=== PATIENT | female | born 1970 | race Hispanic/Latino ===

== ENCOUNTER 2017-11-03 13:04 | Emergency (ER) | payer BC ==
[2017-11-03 13:05] VITALS: BMI 24.0
[2017-11-03 13:39] VITALS: BP 104/62; PULSE 65; RESP 16; TEMP 98.7; O2SAT 98
--- NOTE | 2017-11-03 15:14 | ED PDOC ---
HPI: General Adult Time Seen by Provider: 11/03/17 14:40 Chief Complaint (Nursing): Back Pain Chief Complaint (Provider): Neck Pain/Back Pain History Per: Patient History/Exam Limitations: no limitations Onset/Duration Of Symptoms: Days (x2) Current Symptoms Are (Timing): Still Present Additional Complaint(s): Marisol Wetzel is a 47 year old female that presents to the ED with a chief complaint of neck pain and upper back pain s/p fall 3 days ago. Patient states that she has a history of osteopenia and she wants to make sure she doesn't have a fracture. Patient also twisted her right knee at time of fall but is able to bear weight and walk. She has not taken anything for pain relief. No chest pain, shortness of breath or dyspnea on exertion. Past Medical History Reviewed: Historical Data, Nursing Documentation, Vital Signs Vital Signs: Last Vital Signs Temp 98.7 F 11/03/17 13:33 Pulse 65 11/03/17 13:33 Resp 16 11/03/17 13:33 BP 104/62 11/03/17 13:33 Pulse Ox 98 11/03/17 15:46 - Medical History PMH: Gastritis Other PMH: osteopenia - Family History Family History: States: No Known Family Hx - Living Arrangements Living Arrangements: With Family - Social History Current smoker - smoking cessation education provided: No Alcohol: None Drugs: Denies - Allergies Allergies/Adverse Reactions: Allergies Allergy/AdvReac Type Severity Reaction Status Date / Time Penicillins Allergy RASH Verified 11/03/17 13:33 steroids Allergy DIZZINESS Uncoded 11/03/17 13:33 Review of Systems ROS Statement: Except As Marked, All Systems Reviewed And Found Negative Musculoskeletal: Positive for: Neck Pain, Back Pain (upper back pain), Leg Pain (right knee pain) Physical Exam - Reviewed Nursing Documentation Reviewed: Yes Vital Signs Reviewed: Yes - Physical Exam Appears: Positive for: Non-toxic, No Acute Distress Head Exam: Positive for: ATRAUMATIC, NORMOCEPHALIC Skin: Positive for: Normal Color, Warm Eye Exam: Positive for: Normal appearance, EOMI, PERRL Neck: Positive for: Supple, Pain On Movement Of Neck. Negative for: Normal ( Tenderness to palpation along midline of C-Spine with no step off and full rom) Cardiovascular/Chest: Positive for: Regular Rate, Rhythm Respiratory: Positive for: Normal Breath Sounds. Negative for: Wheezing, Respiratory Distress Back: Positive for: Normal Inspection, Vertebral Tenderness (Tenderness to palpation along midline of thoracic spine). Negative for: L CVA Tenderness, R CVA Tenderness Extremity: Positive for: Normal ROM (full ROM right knee), Swelling (mild swelling right knee medially) Neurologic/Psych: Positive for: Alert, Oriented - ECG O2 Sat by Pulse Oximetry: 98 (RA) Pulse Ox Interpretation: Normal - Other Rad C spine x-ray X-Ray: Interpreted by Me, Viewed By Me X-Ray Interpretation: no fx, no dis T spine x-ray X-Ray: Interpreted by Me, Viewed By Me X-Ray Interpretation: ? compression fracture Medical Decision Making Medical Decision Making: Impression: 47 year old female with neck and upper back pain Plan: * X-Ray C-Spine * X-Ray T-Spine Patient declined both X-Ray for right knee and pain medication. CT of cervical and thoracic spine ordered to assess for occult fracture given history of osteopenia. Patient agrees to CTs. CT cervical spine and thoracic spine demonstrated no acute fractures. Copies of report provided to patient. Patient was instructed to take NSAIDs for pain as needed and ice affected area. Orthopedic referral given. Scribe Attestation: Documented by Corazon Garcia, acting as a scribe for Alisia Angeles PA-C. Provider Scribe Attestation: All medical record entries made by the Scribe were at my direction and personally dictated by me. I have reviewed the chart and agree that the record accurately reflects my personal performance of the history, physical exam, medical decision making, and the department course for this patient. I have also personally directed, reviewed, and agree with the discharge instructions and disposition. Disposition - Clinical Impression Clinical Impression: Neck sprain, Strain of thoracic region - Patient ED Disposition Is Patient to be Admitted: No Counseled Patient/Family Regarding: Studies Performed, Diagnosis, Need For Followup - Disposition Referrals: Napoleon Barrios MD [Medical Doctor] - Disposition: Routine/Home Disposition Time: 17:57 Condition: STABLE Additional Instructions: Ice affected area and rest as much as possible. Take [id number] pain relievers as needed. Follow-up with primary doctor or with orthopedist for any persistent symptoms. Instructions: Cervical Muscle Strain, Upper Back Pain Forms: [employer] (Scottish)
--- NOTE | 2017-11-03 16:06 | RAD ---
PROCEDURE: Cervical Spine Radiographs. HISTORY: Pain. COMPARISON: None. FINDINGS: BONES: Alignment maintained. No fracture. Dens Intact. DISC SPACES: Normal. SOFT TISSUES: Normal. No prevertebral soft tissue swelling. OTHER FINDINGS: None. IMPRESSION: Normal cervical spine radiographs
--- NOTE | 2017-11-03 16:07 | RAD ---
HISTORY: trauma COMPARISON: No prior. FINDINGS: BONES: Alignment maintained. No fracture. DISC SPACES: Normal. SOFT TISSUES: Normal. OTHER FINDINGS: None. IMPRESSION: Normal radiographs of the thoracic spine.
--- NOTE | 2017-11-03 17:17 | CT ---
PROCEDURE: CT Cervical Spine without contrast HISTORY: <rule out fx> COMPARISON: None available. TECHNIQUE: Axial computed tomography images were obtained of the cervical spine without the use of intravenous contrast. Coronal and sagittal reformatted images were created and reviewed. Radiation dose: Total exam DLP = mGy-cm. This CT exam was performed using one or more of the following dose reduction techniques: Automated exposure control, adjustment of the mA and/or kV according to patient size, and/or use of iterative reconstruction technique. FINDINGS: VERTEBRAE: No fracture. Normal alignment. No destructive bony lesion. DISCS/SPINAL CANAL/NEURAL FORAMINA: No significant central canal or neural foraminal stenosis. Discs heights are grossly preserved. PARASPINAL SOFT TISSUES: Unremarkable. OTHER FINDINGS: None. IMPRESSION: Unremarkable CT of the cervical spine.
--- NOTE | 2017-11-03 17:53 | CT ---
PROCEDURE: CT Thoracic Spine without contrast HISTORY: ? fracture of x-ray COMPARISON: None. TECHNIQUE: Axial computed tomography images were obtained of the thoracic spine without intravenous contrast. Coronal and sagittal reformatted images were created and reviewed. Radiation dose: Total exam DLP = mGy-cm. This CT exam was performed using one or more of the following dose reduction techniques: Automated exposure control, adjustment of the mA and/or kV according to patient size, and/or use of iterative reconstruction technique. FINDINGS: VERTEBRAE: Unremarkable. No fracture. Normal alignment. DISCS/SPINAL CANAL/NEURAL FORAMINA: Within the limits of the CT technique, no disc herniation seen. No central canal or neural foraminal stenosis.. PARASPINAL SOFT TISSUES: Unremarkable. OTHER FINDINGS: Unremarkable. IMPRESSION: Unremarkable CT of the thoracic spine.
== END 2017-11-03 18:09 | disposition home or self-care (01) ==
LOC: H.ER 13:04
DX: S13.9XXA Sprain of joints and ligaments of unspecified parts of neck, initial encounter (principal); S23.3XXA Sprain of ligaments of thoracic spine, initial encounter; W19.XXXA Unspecified fall, initial encounter; Y92.89 Other specified places as the place of occurrence of the external cause; G56.00 Carpal tunnel syndrome, unspecified upper limb; Z88.0 Allergy status to penicillin